=== PATIENT | female | born 1980 | race American Indian/Alaskan Native ===

== ENCOUNTER 2018-01-12 01:10 | Emergency (ER) | payer SELFPAY ==
[2018-01-12 01:15] VITALS: BP 136/89
[2018-01-12] MEDS ORDERED: NACL 0.9% 1000 ML 1,000 ML IV ONE (02:50)
[2018-01-12 03:34] LABS: Basophils # (Auto) 0.1 K/mm3 (0.0-0.1); Basophils % (Auto) 0.9 % (0.0-1.8); Eosinophils # (Auto) 0.4 K/mm3 (0.0-0.4); Eosinophils % (Auto) 5.4 % (0.0-4.3); Hematocrit 38.9 % (30.3-42.9); Hemoglobin 13.3 gm/dl (10.1-14.3); Lymphocytes # (Auto) 2.3 K/mm3 (1.2-5.4); Lymphocytes % (Auto) 32.9 % (13.4-35.0); Mean Corpuscular HGB Conc 34 % (30-34); Mean Corpuscular Hemoglobin 32 pg (28-32); Mean Corpuscular Volume 94 fl (79-97); Monocytes # (Auto) 0.4 K/mm3 (0.0-0.8); Monocytes % (Auto) 6.1 % (0.0-7.3); Platelet Count 336 K/mm3 (140-440); Red Blood Count 4.16 M/mm3 (3.65-5.03); Red Cell Distribution Width 13.1 % (13.2-15.2)
[2018-01-12 03:43] LABS: Bilirubin,Urine NEG (Negative); Blood,Urine NEG (Negative); Color,Urine Yellow (Yellow); Mucus,Urine FEW /HPF; Protein,Urine <15 mg/dL mg/dL (Negative); Urobilinogen,Urine < 2.0 mg/dL (<2.0)
[2018-01-12 03:53] LABS: Albumin 3.3 g/dL (3.9-5); BUN/Creatinine Ratio 17; Blood Urea Nitrogen 12 mg/dL (7-17); Hemolysis Index 201; Lipase 22 units/L (13-60)
[2018-01-12 03:59] LABS: Alanine Aminotransferase 14 units/L (7-56)
[2018-01-12] MEDS ORDERED: TYLENOL PO ONE (05:30)
[2018-01-12] MEDS ORDERED: TYLENOL ONE (05:41)
== END 2018-01-12 03:05 | disposition left against medical advice (07) ==
LOC: ED 01:10
DX: R10.9 Unspecified abdominal pain (principal); Z53.21 Procedure and treatment not carried out due to patient leaving prior to being seen by health care provider
CPT/HCPCS: 36415; 80053; 81001; 83690; 84703; 85025

== ENCOUNTER 2018-11-09 22:09 | Emergency (ER) | payer MEDICARE ==
--- NOTE | 2018-11-09 23:02 | Emergency Department Report ---
HPI - General Chief Complaint: Dyspnea/Respdistress Time Seen by Provider: 11/09/18 22:14 - HPI HPI: 38-year-old -[place] female presents to the emergency department via EMS from home with complaint of some generalized chest tightness and discomfort, shortness of breath that started earlier this afternoon. The patient has a history of asthma, IBS, and remote seizures. She received Solu-Medrol, magnesium and albuterol in route with EMS. She does complain of some wheezing and a mixed dry and productive cough. She is a tobacco smoker but denies any illicit drug use. She just moved here from [place] a few months ago. She follows with [facility] for primary care. She does have a family history of early cardiac disease in her parents. ED Past Medical Hx - Past Medical History Hx Asthma: Yes - Surgical History Additional Surgical History: HYSTERECTOMY, HERNIA REPAIR x 3 - Social History Smoking Status: Current Every Day Smoker Substance Use Type: Alcohol - Medications Home Medications: Home Medications Medication Instructions Recorded Confirmed Last Taken Type Cyclobenzaprine HCl [Flexeril 5 MG 5 mg PO TID PRN #21 tab 09/05/18 Unknown Rx TAB] Naproxen [Naprosyn] 500 mg PO BID #14 tablet 09/05/18 Unknown Rx predniSONE [Deltasone] 20 mg PO QDAY #3 tab 11/10/18 Unknown Rx ED Review of Systems ROS: Stated complaint: KAROLYN Other details as noted in HPI Comment: All other systems reviewed and negative Constitutional: denies: chills, fever Eyes: denies: eye pain, vision change ENT: denies: ear pain, throat pain Respiratory: cough, shortness of breath, wheezing Cardiovascular: chest pain. denies: palpitations Gastrointestinal: denies: abdominal pain, vomiting Genitourinary: denies: dysuria, discharge Musculoskeletal: denies: back pain, arthralgia Skin: denies: rash, lesions Neurological: denies: headache, weakness Physical Exam - Physical Exam Vital Signs: Vital Signs 11/09/18 11/09/18 22:22 22:31 Temperature 98.2 F Pulse Rate 98 H Respiratory 22 22 Rate Blood Pressure 125/91 [Left] O2 Sat by Pulse 100 Oximetry Physical Exam: GENERAL: The patient is well-developed well-nourished. HENT: Normocephalic. Atraumatic. Patient has moist mucous membranes. EYES: Extraocular motions are intact. Pupils equal reactive to light bilaterally. NECK: Supple. Trachea is midline. CHEST/LUNGS: Mild expiratory wheezing. No tachypnea or accessory muscle use. There is reproducible tenderness to palpation to the mid sternal chest wall but no crepitus or deformity. There is no respiratory distress noted. HEART/CARDIOVASCULAR: Regular. There is no tachycardia. There is no murmur. ABDOMEN: Abdomen is soft, nontender. Patient has normal bowel sounds. There is no abdominal distention. SKIN: Skin is warm and dry. NEURO: The patient is awake, alert, and oriented. The patient is cooperative. The patient has no focal neurologic deficits. The patient has normal speech. MUSCULOSKELETAL: There is no tenderness or deformity. There is no evidence of acute injury. ED Course Vital Signs 11/09/18 11/09/18 22:22 22:31 Temperature 98.2 F Pulse Rate 98 H Respiratory 22 22 Rate Blood Pressure 125/91 [Left] O2 Sat by Pulse 100 Oximetry ED Medical Decision Making - Lab Data Result diagrams: 11/09/18 23:06 11/09/18 23:06 - EKG Data -: EKG Interpreted by Me EKG shows normal: sinus rhythm, axis, intervals, QRS complexes, ST-T waves Rate: normal - EKG Data When compared to previous EKG there are: previous EKG unavailable Interpretation: normal EKG - Radiology Data Radiology results: image reviewed interpreted by me: Chest x-ray does not show any acute process. There are no pleural effusions, obvious pneumonia and there is no pneumothorax. - Medical Decision Making This patient presents to the emergency department with a complaint of some chest discomfort, shortness of breath, wheezing. Chest x-ray was done that does not show any pleural effusions, pneumonia, pneumothorax, focal consolidation or any other acute process. EKG was done that does not show any signs of ST elevation OH or dysrhythmia. Patient's labs were mostly unremarkable including negative troponins 2 and a negative d-dimer. She was given some Solu-Medrol and magnesium in route with EMS. In the emergency department, she was given a dose of pain medication, another nebulized breathing treatment and an aspirin. She was evaluated multiple times for multiple hours and says she is feeling greatly improved. Her vital signs and stable throughout her ED course. The patient is low on the Heart score criteria and BERKLEY score. For all these reasons, she appears safe for discharge home at this time. She has refills for her albuterol inhaler and nebulizer. She was given a few days of some prednisone. She has good follow-up with primary care and was given a referral, by me, for a local senior hydrogeologist to follow up regarding her chest pain and her family history. She will return to the ER with any worsening of her symptoms or any acute distress. It should be noted that the pulse ox of 82% listed at about 3:00 was not accurate. This was as the patient was being discharged and the pulse oximeter was not even on the patient. All of the rest of the patient's pulse ox listed for her vitals have been 96% or higher. - Differential Diagnosis Asthma, Bronchitis, OH, PE, Pneumonia Critical Care Time: No Critical care attestation.: If time is entered above; I have spent that time in minutes in the direct care of this critically ill patient, excluding procedure time. ED Disposition Clinical Impression: Tobacco use Chest pain Qualifiers: Chest pain type: unspecified Qualified Code(s): R07.9 - Chest pain, unspecified Asthma exacerbation Qualifiers: Asthma severity: unspecified severity Asthma persistence: unspecified Qualified Code(s): J45.901 - Unspecified asthma with (acute) exacerbation Disposition: TO HOME OR SELFCARE Is pt being admited?: No Condition: Stable Instructions: Chest Pain (ED), Asthma (ED), How to Stop Smoking (ED), Costochondritis (ED) Additional Instructions: Please follow-up with your primary care physician in the next few days. I am giving him a referral for a local senior hydrogeologist, Dr. Rich, to follow up regarding your recent chest pain. Return to the emergency department with any worsening of your symptoms or any acute distress. Please try and quit smoking. Prescriptions: predniSONE [Deltasone] 20 mg PO QDAY #3 tab Referrals: MATTHIEU RICH MD [Staff Physician] - 2-3 Days Primary Care Provider, Your [Other] - 2-3 Days Time of Disposition: :13 Heart Score - HEART Score History: Slightly suspicious EKG: Normal Age: < 45 Risk factors: 1-2 risk factors Troponin: < normal limit HEART Score: 1 - Critical Actions Critical Actions: 0-3 pts:0.9-1.7%risk of adverse cardiac event.Candidate for discharge BERKLEY score - Berkley Score Age > 65: (0) No Aspirin use within the Past 7 Days: (0) No 3 or more CAD Risk Factors: (0) No 2 or more Angina events in past 24 hrs: (0) No Known CAD with more than 50% Stenosis: (0) No Elevated Cardiac Markers: (0) No ST Deviation Greater than 0.5mm: (0) No BERKLEY Score: 0
--- NOTE | 2018-11-09 23:08 | XRay Report ---
PROCEDURE: XR CHEST 1V AP TECHNIQUE: Chest radiograph single view. HISTORY: Dyspnea COMPARISONS: None . FINDINGS: Heart: Magnified due to projection, appears to be normal size.. Mediastinum/Vessels: Normal. Lungs/Pleural space: Clear.. Bony thorax: No acute osseous abnormality. Life support devices: None. IMPRESSION: No acute cardiopulmonary abnormality. This document is electronically signed by Shaheen Barahona MD., November 09 2018 11:06:37 PM ET
[2018-11-09 23:43] LABS: Basophils # (Auto) 0.1 K/mm3 (0.0-0.1); Basophils % (Auto) 0.4 % (0.0-1.8); Eosinophils # (Auto) 0.1 K/mm3 (0.0-0.4); Eosinophils % (Auto) 0.8 % (0.0-4.3); Hematocrit 36.5 % (30.3-42.9); Hemoglobin 13.1 gm/dl (10.1-14.3); Lymphocytes # (Auto) 1.6 K/mm3 (1.2-5.4); Lymphocytes % (Auto) 10.4 % (13.4-35.0); Mean Corpuscular HGB Conc 36 % (30-34); Mean Corpuscular Volume 91 fl (79-97); Monocytes # (Auto) 0.4 K/mm3 (0.0-0.8); Monocytes % (Auto) 2.8 % (0.0-7.3); Platelet Count 354 K/mm3 (140-440); Red Blood Count 4.01 M/mm3 (3.65-5.03)
[2018-11-09] MEDS ORDERED: MORPHINE IV ONE (23:56)
[2018-11-09] MEDS ORDERED: BABY ASPIRIN PO ONE (23:56)
[2018-11-09] MEDS ORDERED: PROVENTIL IH ONE (23:56)
[2018-11-10 00:41] LABS: BUN/Creatinine Ratio 14; Blood Urea Nitrogen 11 mg/dL (7-17); Calcium 9.1 mg/dL (8.4-10.2); Hemolysis Index 0
[2018-11-10] MEDS ORDERED: TORADOL IV ONE (01:55)
[2018-11-10 02:14] VITALS: BP 127/72
== END 2018-11-10 03:35 | disposition home or self-care (01) ==
LOC: ED 22:09
DX: J45.901 Unspecified asthma with (acute) exacerbation (principal); R07.89 Other chest pain; F17.200 Nicotine dependence, unspecified, uncomplicated; Z88.0 Allergy status to penicillin; Z90.710 Acquired absence of both cervix and uterus; Z98.890 Other specified postprocedural states
CPT/HCPCS: 36415; 71045; 80048; 84484; 84703; 85025; 85379; 93005; 93010; 94640; 96374; 96375; 99285; J1885; J2270